=== PATIENT | male | born 1990 | race Caucasian/White ===

== ENCOUNTER 2016-08-01 15:53 | Emergency (ER) | payer OTHER ==
--- NOTE | 2016-08-01 16:13 | ED ORDER SUMMARY ---
..... Patient: MERCEDES BRIDGES OrderSheet [facility] VisitID: [id number] [address] [place] [address] 26y, M Registration Date/Time: 08/01/2016 ORDER SHEET Weight: 68.0 kg (stated) Allergies: No Known Drug Allergy GENERAL ORDERS: MEDICATION ORDERS: Hydrocodone-APAP PO 5/325 mg (NOW, HIGH ALERT MEDICATION) (16:10 08/01/2016 Ernesto P.A.-C) (Ack 16:19 Magda R.N.) (16:28 Magda R.N.) Amoxicillin PO 500 mg (NOW) (16:11 08/01/2016 Ernesto P.A.-C) (Ack 16:19 Magda R.N.) (16:28 Magda R.N.) IV FLUIDS: ORDER SHEET NOTES: [Electronically signed by Tiffanie Hillman P.A.-C (16:19 08/01/2016)] [Electronically signed by Alana Webb R.N. (16:29 08/01/2016)] [Electronically locked/signed by Alana Webb R.N. (16:29 08/01/2016)]
--- NOTE | 2016-08-01 16:13 | ED NURSING NOTES ---
Clinical Report - Nurses [facility] [address] [place] [address] 08/01/2016 15:56 Patient: MERCEDES BRIDGES TRIAGE Triage time 16:02. Acuity: LEVEL 4. Chief Complaint: TOOTHACHE. Alert. LUIS COMA SCORE: [place] Coma Scale: 15- eyes open spontaneously (4); best verbal response- oriented x 4 (5); best motor response- obeys commands (6). --16:05 Alana Webb R.N. 16:02 08/01/16. BP: 161/84. HR: 76. RR: 18. O2 saturation: 100%. Temp: 97.8 F (oral). Pain level now: 12/29. --16:05 Alana Webb R.N. Weight: 68 kg stated. Height/Length: 73 inches Per Patient. BMI: 19.8. --16:05 Alana Webb R.N. Medications Antibiotic, , for foliculitis. --16:03 Alana Webb R.N. Medication/allergy information source: the patient. --16:05 Alana Webb R.N. Allergies No Known Drug Allergy. --16:04 Alana Webb R.N. History Arrived by private vehicle. Historian: patient. Accompanied by family. Primary physician (none). Onset. (about 2 months). SOCIAL HX: Heavy tobacco smoker- less than 1 pack per day. Alcohol use; consumes four beers a day. History of drug use: marijuana. FALL RISK ASSESSMENT: Fall risk assessment completed. No fall risk identified. FUNCTIONAL ASSESSMENT: Functional assessment: no impairments noted. LEARNING NEEDS ASSESSMENT: The learning needs assessment revealed no barriers. --16:05 Alana Webb R.N. PROBLEMS: Abrasion(s). Head Injury. Laceration. Clavicle Fracture. --16:04 Alana Webb R.N. ADDITIONAL SURGERIES: Clavical surg. --16:04 Alana Webb R.N. Assessment GENERAL / NEURO / PSYCH: The patient is awake and alert, is oriented and cooperative and appears uncomfortable. He has good eye contact. RESPIRATORY: Respirations not labored. SKIN: Skin is warm and dry. --16:05 Alana Webb R.N. Interventions ID band on patient. To treatment room. --16:05 Alana Webb R.N. PHYSICAL ASSESSMENT 16:08/01/16. Ambulatory to room. GENERAL / NEURO / PSYCH: The patient is awake and alert, is oriented and cooperative and appears uncomfortable. He has good eye contact. RESPIRATORY: Respirations not labored. SKIN: Skin is warm and dry. --16:07 Aalna Webb R.N. NURSING PROGRESS NOTES 16:08/01/16. Head of bed elevated. Call light placed in reach. Side rails up x 1. Bed placed in lowest position. Brakes of bed on. --16:07 Alana Webb R.N. 16:20 08/01/2016 Hydrocodone-APAP (Hydrocodone-Acetaminophen) PO 5/325 mg Tablets 1 tab given. Allergies verified, confirmed 5 rights and sedative warning given to the patient. --16:28 Alana Webb R.N. 16:20 08/01/2016 Amoxicillin PO Capsules 500 mg given. Allergies verified and confirmed 5 rights. --16:28 Alana Webb R.N. 16:20. Reassessment after medication administered. He is calm. Overall patient status is the same- he states feels the same. GENERAL / NEURO / PSYCH: Alert. Oriented X 4. RESPIRATORY: No respiratory distress. SKIN: Skin is warm and dry. --16:29 Alana Webb R.N. DISPOSITION / DISCHARGE Departure time: 1620. Condition at departure: unchanged. No learning barriers present. Discharge instructions provided and reviewed with the patient. Reviewed medication(s). Prescription(s) given to the patient. Patient verbalized understanding. Written instructions provided in [place]. The patient was discharged home and accompanied by family. He left the Emergency Department ambulatory and via private vehicle. FALL RISK ASSESSMENT: Fall risk assessment completed. No fall risk identified. --16:27 Alana Webb R.N. 16:20 08/01/16. BP: 130/75. HR: 90. RR: 18. O2 saturation: 96%. Pain level now: 12/29. --16:27 Alana Webb R.N. Locked/Released at 08/01/2016 16:29 by Alana Webb R.N.
--- NOTE | 2016-08-01 16:13 | ED CLINICAL REPORT ---
Clinical Report - Physicians/Mid Levels [facility] [address] [place] [place] [address] 08/01/2016 15:56 Patient: MERCEDES BRIDGES Time Seen: 16:07 Aug 01 2016. Arrived- By private vehicle. Historian- patient. HISTORY OF PRESENT ILLNESS Chief Complaint: DENTAL PAIN. This started today similar ongoing for a few months and is still present. No sore throat or nasal discharge. He has had toothache. (Patient reports worsening abdominal pain over the last 24 hours. Reports history of similar pain to the left aspect. He denies any patient's on. He denies any difficulty eating. Advil this morning. Denies any fevers. Denies any new injury.). REVIEW OF SYSTEMS No fever, difficulty breathing or skin rash. All systems otherwise negative, except as recorded above. SOCIAL HISTORY Smoker- current status unknown. Alcohol use. History of IV drug use: marijuana. ADDITIONAL NOTES The nursing notes have been reviewed. PHYSICAL EXAM Vital Signs: 08/01/2016 16:02 BP: 161/84. HR: 76. RR: 18. O2 saturation: 100%. Temp: 97.8 F. Pain level now: 10/10. Appearance: Alert. Head: (tm unremarkable of left side, no mastoid tendernss.). Eyes: Conjunctivae and eyelids normal. ENT: Dental tenderness. Ears normal. Nose normal. Lips normal. Uvula midline. No trismus. (No facial swelling, decay of teeth to erythema of the gumline, with tenderness on the lower aspect of the molar. No palpable mass.). Neck: Trachea midline. No adenopathy. CVS: Normal heart rate and rhythm. Heart sounds normal. Respiratory: No respiratory distress. Breath sounds normal. No stridor. Skin: Normal skin color. No rash. PROGRESS AND PROCEDURES Course of Care: Patient with no signs of Dannie angina. No facial swelling. Decay of the teeth especially his left lower molar. Patient otherwise very stable. Fall palpation. Uvula is midline. Patient is stable. Patient/family counseled. Disposition: Discharged. CLINICAL IMPRESSION Moderate dental pain. INSTRUCTIONS Drink plenty of fluids. Prescription Medications: Hydrocodone/APAP 5mg / 325mg: take 1 orally every 6 hours as needed for pain. Dispense five (5). No refill. Amoxicillin 500 mg tablets: Take 1 orally every 8 hours for 10 days. Dispense thirty (30). No refills. Motrin 800 mg tablets: take 1 tablet orally every 8 hours for 5 days, as needed for pain. Dispense fifteen (15). No refill. Substitution is permissible. Follow-up: Follow up with a specialist. (Electronically signed by Tiffanie Hillman P.A.-C 08/01/2016 16:19)
--- NOTE | 2016-08-01 16:13 | ED CLINICAL REPORT ---
Clinical Report - Physicians/Mid Levels [facility] [address] [place] [place] [address] 08/01/2016 15:56 Patient: MERCEDES BRIDGES Time Seen: 16:07 Aug 01 2016. Arrived- By private vehicle. Historian- patient. HISTORY OF PRESENT ILLNESS Chief Complaint: DENTAL PAIN. This started today similar ongoing for a few months and is still present. No sore throat or nasal discharge. He has had toothache. (Patient reports worsening abdominal pain over the last 24 hours. Reports history of similar pain to the left aspect. He denies any patient's on. He denies any difficulty eating. Advil this morning. Denies any fevers. Denies any new injury.). REVIEW OF SYSTEMS No fever, difficulty breathing or skin rash. All systems otherwise negative, except as recorded above. SOCIAL HISTORY Smoker- current status unknown. Alcohol use. History of IV drug use: marijuana. ADDITIONAL NOTES The nursing notes have been reviewed. PHYSICAL EXAM Vital Signs: 08/01/2016 16:02 BP: 161/84. HR: 76. RR: 18. O2 saturation: 100%. Temp: 97.8 F. Pain level now: 10/10. Appearance: Alert. Head: (tm unremarkable of left side, no mastoid tendernss.). Eyes: Conjunctivae and eyelids normal. ENT: Dental tenderness. Ears normal. Nose normal. Lips normal. Uvula midline. No trismus. (No facial swelling, decay of teeth to erythema of the gumline, with tenderness on the lower aspect of the molar. No palpable mass.). Neck: Trachea midline. No adenopathy. CVS: Normal heart rate and rhythm. Heart sounds normal. Respiratory: No respiratory distress. Breath sounds normal. No stridor. Skin: Normal skin color. No rash. PROGRESS AND PROCEDURES Course of Care: Patient with no signs of Dannie angina. No facial swelling. Decay of the teeth especially his left lower molar. Patient otherwise very stable. Fall palpation. Uvula is midline. Patient is stable. Patient/family counseled. Disposition: Discharged. CLINICAL IMPRESSION Moderate dental pain. INSTRUCTIONS Drink plenty of fluids. Prescription Medications: Hydrocodone/APAP 5mg / 325mg: take 1 orally every 6 hours as needed for pain. Dispense five (5). No refill. Amoxicillin 500 mg tablets: Take 1 orally every 8 hours for 10 days. Dispense thirty (30). No refills. Motrin 800 mg tablets: take 1 tablet orally every 8 hours for 5 days, as needed for pain. Dispense fifteen (15). No refill. Substitution is permissible. Follow-up: Follow up with a specialist. (Electronically signed by Tiffanie Hillman P.A.-C 08/01/2016 16:19)
--- NOTE | 2016-08-01 16:13 | ED NURSING NOTES ---
Clinical Report - Nurses [facility] [address] [place] [address] 08/01/2016 15:56 Patient: MERCEDES BRIDGES TRIAGE Triage time 16:02. Acuity: LEVEL 4. Chief Complaint: TOOTHACHE. Alert. LUIS COMA SCORE: [place] Coma Scale: 15- eyes open spontaneously (4); best verbal response- oriented x 4 (5); best motor response- obeys commands (6). --16:05 Alana Webb R.N. 16:02 08/01/16. BP: 161/84. HR: 76. RR: 18. O2 saturation: 100%. Temp: 97.8 F (oral). Pain level now: 12/29. --16:05 Alana Webb R.N. Weight: 68 kg stated. Height/Length: 73 inches Per Patient. BMI: 19.8. --16:05 Alana Webb R.N. Medications Antibiotic, , for foliculitis. --16:03 Alana Webb R.N. Medication/allergy information source: the patient. --16:05 Alana Webb R.N. Allergies No Known Drug Allergy. --16:04 Alana Webb R.N. History Arrived by private vehicle. Historian: patient. Accompanied by family. Primary physician (none). Onset. (about 2 months). SOCIAL HX: Heavy tobacco smoker- less than 1 pack per day. Alcohol use; consumes four beers a day. History of drug use: marijuana. FALL RISK ASSESSMENT: Fall risk assessment completed. No fall risk identified. FUNCTIONAL ASSESSMENT: Functional assessment: no impairments noted. LEARNING NEEDS ASSESSMENT: The learning needs assessment revealed no barriers. --16:05 Alana Webb R.N. PROBLEMS: Abrasion(s). Head Injury. Laceration. Clavicle Fracture. --16:04 Alana Webb R.N. ADDITIONAL SURGERIES: Clavical surg. --16:04 Alana Webb R.N. Assessment GENERAL / NEURO / PSYCH: The patient is awake and alert, is oriented and cooperative and appears uncomfortable. He has good eye contact. RESPIRATORY: Respirations not labored. SKIN: Skin is warm and dry. --16:05 Alana Webb R.N. Interventions ID band on patient. To treatment room. --16:05 Alana Webb R.N. PHYSICAL ASSESSMENT 16:08/01/16. Ambulatory to room. GENERAL / NEURO / PSYCH: The patient is awake and alert, is oriented and cooperative and appears uncomfortable. He has good eye contact. RESPIRATORY: Respirations not labored. SKIN: Skin is warm and dry. --16:07 Alana Webb R.N. NURSING PROGRESS NOTES 16:08/01/16. Head of bed elevated. Call light placed in reach. Side rails up x 1. Bed placed in lowest position. Brakes of bed on. --16:07 Alana Webb R.N. 16:20 08/01/2016 Hydrocodone-APAP (Hydrocodone-Acetaminophen) PO 5/325 mg Tablets 1 tab given. Allergies verified, confirmed 5 rights and sedative warning given to the patient. --16:28 Alana Webb R.N. 16:20 08/01/2016 Amoxicillin PO Capsules 500 mg given. Allergies verified and confirmed 5 rights. --16:28 Alana Webb R.N. 16:20. Reassessment after medication administered. He is calm. Overall patient status is the same- he states feels the same. GENERAL / NEURO / PSYCH: Alert. Oriented X 4. RESPIRATORY: No respiratory distress. SKIN: Skin is warm and dry. --16:29 Alana Webb R.N. DISPOSITION / DISCHARGE Departure time: 1620. Condition at departure: unchanged. No learning barriers present. Discharge instructions provided and reviewed with the patient. Reviewed medication(s). Prescription(s) given to the patient. Patient verbalized understanding. Written instructions provided in [place]. The patient was discharged home and accompanied by family. He left the Emergency Department ambulatory and via private vehicle. FALL RISK ASSESSMENT: Fall risk assessment completed. No fall risk identified. --16:27 Alana Webb R.N. 16:20 08/01/16. BP: 130/75. HR: 90. RR: 18. O2 saturation: 96%. Pain level now: 12/29. --16:27 Alana Webb R.N. Locked/Released at 08/01/2016 16:29 by Alana Webb R.N.
--- NOTE | 2016-08-01 16:13 | ED ORDER SUMMARY ---
..... Patient: MERCEDES BRIDGES OrderSheet [facility] VisitID: [id number] [address] [place] [address] 26y, M Registration Date/Time: 08/01/2016 ORDER SHEET Weight: 68.0 kg (stated) Allergies: No Known Drug Allergy GENERAL ORDERS: MEDICATION ORDERS: Hydrocodone-APAP PO 5/325 mg (NOW, HIGH ALERT MEDICATION) (16:10 08/01/2016 Ernesto P.A.-C) (Ack 16:19 Magda R.N.) (16:28 Magda R.N.) Amoxicillin PO 500 mg (NOW) (16:11 08/01/2016 Ernesto P.A.-C) (Ack 16:19 Magda R.N.) (16:28 Magda R.N.) IV FLUIDS: ORDER SHEET NOTES: [Electronically signed by Tiffanie Hillman P.A.-C (16:19 08/01/2016)] [Electronically signed by Alana Webb R.N. (16:29 08/01/2016)] [Electronically locked/signed by Alana Webb R.N. (16:29 08/01/2016)]
--- NOTE | 2016-08-01 16:29 | ED DISCHARGE INSTRUCTIONS ---
Patient: MERCEDES BRIDGES General Instructions [facility] VisitID: [id number] [place] [address] 26y, M Registration Date/Time: 08/01/2016 Moderate dental pain. INSTRUCTIONS Drink plenty of fluids. Prescription Medications: Hydrocodone/APAP 5mg / 325mg: take 1 orally every 6 hours as needed for pain. Dispense five (5). No refill. Amoxicillin 500 mg tablets: Take 1 orally every 8 hours for 10 days. Dispense thirty (30). No refills. Motrin 800 mg tablets: take 1 tablet orally every 8 hours for 5 days, as needed for pain. Dispense fifteen (15). No refill. Substitution is permissible. Follow-up: Follow up with a specialist. ADDITIONAL INFORMATION Dental Pain A crack or cavity in the tooth, which exposes the sensitive inner area of the tooth can cause tooth pain. An infection in the gum or the root of the tooth can cause pain and swelling. The pain is often made worse by drinking hot or cold fluids, or biting on hard foods. Pain may spread from the tooth to the ear or jaw on the same side. Home Care: Avoid hot and cold foods and liquids since your tooth may be sensitive to temperature changes. If your tooth is chipped or cracked, or if there is a large open cavity, apply OIL OF CLOVES (available zuck-rxn-oevhpvi in drug stores) directly to the tooth to reduce pain. Some pharmacies carry an ivnr-mri-lftumvo "toothache kit." This contains a paste, which can be applied over the exposed tooth to decrease sensitivity. A cold pack on your jaw over the sore area may help reduce pain. You may use acetaminophen (Tylenol) or ibuprofen (Motrin, Advil) to control pain, unless another medicine was prescribed. [ NOTE: If you have chronic liver or kidney disease or ever had a stomach ulcer or GI bleeding, talk with your doctor before using these medicines.] If you have signs of an infection, an antibiotic will be given. Take it as directed. Follow-Up as directed with a dentist. Your pain may go away with the treatment given. However, only a dentist can fully evaluate and treat the cause and prevent the pain from coming back again. TOOTHACHE IS A SIGN OF DISEASE IN YOUR TOOTH AND SHOULD BE EXAMINED AND TREATED BY A DENTIST. Get Prompt Medical Attention if any of the following occur: Your face becomes swollen or red Pain worsens or spreads to the neck Fever over 100.4 F (38.0 C) Unusual drowsiness; headache or stiff neck; weakness or fainting Pus drains from the tooth Difficulty swallowing or breathing Hydrocodone Bitartrate, Acetaminophen Oral tablet What is this medicine? ACETAMINOPHEN; HYDROCODONE (a set a RAFAL rochelle fen; meenu droe KOE done) is a pain reliever. It is used to treat mild to moderate pain. How should I use this medicine? Take this medicine by mouth. Swallow it with a full glass of water. Follow the directions on the prescription label. If the medicine upsets your stomach, take the medicine with food or milk. Do not take more than you are told to take. Talk to your shoe planner regarding the use of this medicine in children. This medicine is not approved for use in children. What side effects may I notice from receiving this medicine? Side effects that you should report to your doctor or health customer care specialist as soon as possible: allergic reactions like skin rash, itching or hives, swelling of the face, lips, or tongue breathing problems confusion feeling faint or lightheaded, falls stomach pain yellowing of the eyes or skin Side effects that usually do not require medical attention (report to your doctor or health customer care specialist if they continue or are bothersome): nausea, vomiting stomach upset What may interact with this medicine? alcohol antihistamines isoniazid medicines for depression, anxiety, or psychotic disturbances medicines for sleep muscle relaxants naltrexone narcotic medicines (opiates) for pain phenobarbital ritonavir tramadol What if I miss a dose? If you miss a dose, take it as soon as you can. If it is almost time for your next dose, take only that dose. Do not take double or extra doses. Where should I keep my medicine? Keep out of the reach of children. This medicine can be abused. Keep your medicine in a safe place to protect it from theft. Do not share this medicine with anyone. Selling or giving away this medicine is dangerous and against the law. Store at room temperature between 15 and 30 degrees C (59 and 86 degrees F). Protect from light. Keep container tightly closed. Throw away any unused medicine after the expiration date. Discard unused medicine and used packaging carefully. Pets and children can be harmed if they find used or lost packages. What should I tell my health care provider before I take this medicine? They need to know if you have any of these conditions: brain tumor Crohn's disease, inflammatory bowel disease, or ulcerative colitis drink more than 3 alcohol-containing drinks per day drug abuse or addiction head injury heart or circulation problems kidney disease or problems going to the bathroom liver disease lung disease, asthma, or breathing problems an unusual or allergic reaction to acetaminophen, hydrocodone, other opioid analgesics, other medicines, foods, dyes, or preservatives or trying to get breast-feeding What should I watch for while using this medicine? Tell your doctor or health customer care specialist if your pain does not go away, if it gets worse, or if you have new or a different type of pain. You may develop tolerance to the medicine. Tolerance means that you will need a higher dose of the medicine for pain relief. Tolerance is normal and is expected if you take the medicine for a long time. Do not suddenly stop taking your medicine because you may develop a severe reaction. Your body becomes used to the medicine. This does NOT mean you are addicted. Addiction is a behavior related to getting and using a drug for a non-medical reason. If you have pain, you have a medical reason to take pain medicine. Your doctor will tell you how much medicine to take. If your doctor wants you to stop the medicine, the dose will be slowly lowered over time to avoid any side effects. You may get drowsy or dizzy when you first start taking the medicine or change doses. Do not drive, use machinery, or do anything that may be dangerous until you know how the medicine affects you. Stand or sit up slowly. There are different types of narcotic medicines (opiates) for pain. If you take more than one type at the same time, you may have more side effects. Give your health care provider a list of all medicines you use. Your doctor will tell you how much medicine to take. Do not take more medicine than directed. Call emergency for help if you have problems breathing. The medicine will cause constipation. Try to have a bowel movement at least every 2 to 3 days. If you do not have a bowel movement for 3 days, call your doctor or health customer care specialist. Too much acetaminophen can be very dangerous. Do not take Tylenol (acetaminophen) or medicines that contain acetaminophen with this medicine. Many non-prescription medicines contain acetaminophen. Always read the labels carefully. You have been given the following additional information: Dental Pain Hydrocodone Bitartrate, Acetaminophen Oral tablet (Electronically signed by Tiffanie Hillman P.A.-C 08/01/2016 16:19)
--- NOTE | 2016-08-01 16:29 | ED DISCHARGE INSTRUCTIONS ---
Patient: MERCEDES BRIDGES General Instructions [facility] VisitID: [id number] [place] [address] 26y, M Registration Date/Time: 08/01/2016 Moderate dental pain. INSTRUCTIONS Drink plenty of fluids. Prescription Medications: Hydrocodone/APAP 5mg / 325mg: take 1 orally every 6 hours as needed for pain. Dispense five (5). No refill. Amoxicillin 500 mg tablets: Take 1 orally every 8 hours for 10 days. Dispense thirty (30). No refills. Motrin 800 mg tablets: take 1 tablet orally every 8 hours for 5 days, as needed for pain. Dispense fifteen (15). No refill. Substitution is permissible. Follow-up: Follow up with a specialist. ADDITIONAL INFORMATION Dental Pain A crack or cavity in the tooth, which exposes the sensitive inner area of the tooth can cause tooth pain. An infection in the gum or the root of the tooth can cause pain and swelling. The pain is often made worse by drinking hot or cold fluids, or biting on hard foods. Pain may spread from the tooth to the ear or jaw on the same side. Home Care: Avoid hot and cold foods and liquids since your tooth may be sensitive to temperature changes. If your tooth is chipped or cracked, or if there is a large open cavity, apply OIL OF CLOVES (available [id number]-[id number] in drug stores) directly to the tooth to reduce pain. Some pharmacies carry an [id number] "toothache kit." This contains a paste, which can be applied over the exposed tooth to decrease sensitivity. A cold pack on your jaw over the sore area may help reduce pain. You may use acetaminophen (Tylenol) or ibuprofen (Motrin, Advil) to control pain, unless another medicine was prescribed. [ NOTE: If you have chronic liver or kidney disease or ever had a stomach ulcer or GI bleeding, talk with your doctor before using these medicines.] If you have signs of an infection, an antibiotic will be given. Take it as directed. Follow-Up as directed with a dentist. Your pain may go away with the treatment given. However, only a dentist can fully evaluate and treat the cause and prevent the pain from coming back again. TOOTHACHE IS A SIGN OF DISEASE IN YOUR TOOTH AND SHOULD BE EXAMINED AND TREATED BY A DENTIST. Get Prompt Medical Attention if any of the following occur: Your face becomes swollen or red Pain worsens or spreads to the neck Fever over 100.4 F (38.0 C) Unusual drowsiness; headache or stiff neck; weakness or fainting Pus drains from the tooth Difficulty swallowing or breathing Hydrocodone Bitartrate, Acetaminophen Oral tablet What is this medicine? ACETAMINOPHEN; HYDROCODONE (a set a RAFAL rochelle fen; meenu droe KOE done) is a pain reliever. It is used to treat mild to moderate pain. How should I use this medicine? Take this medicine by mouth. Swallow it with a full glass of water. Follow the directions on the prescription label. If the medicine upsets your stomach, take the medicine with food or milk. Do not take more than you are told to take. Talk to your coatings inspector regarding the use of this medicine in children. This medicine is not approved for use in children. What side effects may I notice from receiving this medicine? Side effects that you should report to your doctor or health janitor caretaker as soon as possible: allergic reactions like skin rash, itching or hives, swelling of the face, lips, or tongue breathing problems confusion feeling faint or lightheaded, falls stomach pain yellowing of the eyes or skin Side effects that usually do not require medical attention (report to your doctor or health janitor caretaker if they continue or are bothersome): nausea, vomiting stomach upset What may interact with this medicine? alcohol antihistamines isoniazid medicines for depression, anxiety, or psychotic disturbances medicines for sleep muscle relaxants naltrexone narcotic medicines (opiates) for pain phenobarbital ritonavir tramadol What if I miss a dose? If you miss a dose, take it as soon as you can. If it is almost time for your next dose, take only that dose. Do not take double or extra doses. Where should I keep my medicine? Keep out of the reach of children. This medicine can be abused. Keep your medicine in a safe place to protect it from theft. Do not share this medicine with anyone. Selling or giving away this medicine is dangerous and against the law. Store at room temperature between 15 and 30 degrees C (59 and 86 degrees F). Protect from light. Keep container tightly closed. Throw away any unused medicine after the expiration date. Discard unused medicine and used packaging carefully. Pets and children can be harmed if they find used or lost packages. What should I tell my health care provider before I take this medicine? They need to know if you have any of these conditions: brain tumor Crohn's disease, inflammatory bowel disease, or ulcerative colitis drink more than 3 alcohol-containing drinks per day drug abuse or addiction head injury heart or circulation problems kidney disease or problems going to the bathroom liver disease lung disease, asthma, or breathing problems an unusual or allergic reaction to acetaminophen, hydrocodone, other opioid analgesics, other medicines, foods, dyes, or preservatives or trying to get breast-feeding What should I watch for while using this medicine? Tell your doctor or health janitor caretaker if your pain does not go away, if it gets worse, or if you have new or a different type of pain. You may develop tolerance to the medicine. Tolerance means that you will need a higher dose of the medicine for pain relief. Tolerance is normal and is expected if you take the medicine for a long time. Do not suddenly stop taking your medicine because you may develop a severe reaction. Your body becomes used to the medicine. This does NOT mean you are addicted. Addiction is a behavior related to getting and using a drug for a non-medical reason. If you have pain, you have a medical reason to take pain medicine. Your doctor will tell you how much medicine to take. If your doctor wants you to stop the medicine, the dose will be slowly lowered over time to avoid any side effects. You may get drowsy or dizzy when you first start taking the medicine or change doses. Do not drive, use machinery, or do anything that may be dangerous until you know how the medicine affects you. Stand or sit up slowly. There are different types of narcotic medicines (opiates) for pain. If you take more than one type at the same time, you may have more side effects. Give your health care provider a list of all medicines you use. Your doctor will tell you how much medicine to take. Do not take more medicine than directed. Call emergency for help if you have problems breathing. The medicine will cause constipation. Try to have a bowel movement at least every 2 to 3 days. If you do not have a bowel movement for 3 days, call your doctor or health janitor caretaker. Too much acetaminophen can be very dangerous. Do not take Tylenol (acetaminophen) or medicines that contain acetaminophen with this medicine. Many non-prescription medicines contain acetaminophen. Always read the labels carefully. You have been given the following additional information: Dental Pain Hydrocodone Bitartrate, Acetaminophen Oral tablet (Electronically signed by Tiffanie Hillman P.A.-C 08/01/2016 16:19)
--- NOTE | 2016-08-01 16:30 | ED MED RECONCILIATION SUMMARY ---
Patient: MERCEDES BRIDGES Medication Reconciliation Report [facility] VisitID: [id number] [place] [address] 26y, M Registration Date/Time: 08/01/2016 Weight: 68.0 kg Height/Length: 73 in. BMI: 19.8 ALLERGIES: No Known Drug Allergy The patient's Home Medications are listed below: THE FOLLOWING MEDICATIONS NEED TO BE RECONCILED: Antibiotic, for foliculitis The source(s) of the original Home Medication information: patient The following Medications were given to the patient in the Emergency Department: Hydrocodone-APAP [PO] PO 1 tab, administered: 08/01/2016 4:20:00 PM Amoxicillin [PO] PO 500 mg, administered: 08/01/2016 4:20:00 PM The following Medications were prescribed to the patient: Hydrocodone/APAP 5mg / 325mg: take 1 orally every 6 hours as needed for pain. Dispense five (5). No refill. -- Tiffanie Hillman, P.A.-Daniel Amoxicillin 500 mg tablets: Take 1 orally every 8 hours for 10 days. Dispense thirty (30). No refills. -- Tiffanie Hillman, P.A.-Daniel Motrin 800 mg tablets: take 1 tablet orally every 8 hours for 5 days, as needed for pain. Dispense fifteen (15). No refill. Substitution is permissible. -- Tiffanie Hillman P.A.-C
--- NOTE | 2016-08-01 16:30 | ED MED RECONCILIATION SUMMARY ---
Patient: MERCEDES BRIDGES Medication Reconciliation Report [facility] VisitID: [id number] [place] [address] 26y, M Registration Date/Time: 08/01/2016 Weight: 68.0 kg Height/Length: 73 in. BMI: 19.8 ALLERGIES: No Known Drug Allergy The patient's Home Medications are listed below: THE FOLLOWING MEDICATIONS NEED TO BE RECONCILED: Antibiotic, for foliculitis The source(s) of the original Home Medication information: patient The following Medications were given to the patient in the Emergency Department: Hydrocodone-APAP [PO] PO 1 tab, administered: 08/01/2016 4:20:00 PM Amoxicillin [PO] PO 500 mg, administered: 08/01/2016 4:20:00 PM The following Medications were prescribed to the patient: Hydrocodone/APAP 5mg / 325mg: take 1 orally every 6 hours as needed for pain. Dispense five (5). No refill. -- Tiffanie Hillman, P.A.-Daniel Amoxicillin 500 mg tablets: Take 1 orally every 8 hours for 10 days. Dispense thirty (30). No refills. -- Tiffanie Hillman, P.A.-Daniel Motrin 800 mg tablets: take 1 tablet orally every 8 hours for 5 days, as needed for pain. Dispense fifteen (15). No refill. Substitution is permissible. -- Tiffanie Hillman P.A.-C
--- NOTE | 2016-08-01 16:30 | ED MAR SUMMARY ---
..... Medication Administration Record [facility] [address] [place] [address] Patient: MERCEDES BRIDGES Visit ID: [id number] 26y, M Weight: 68.0 kg Height/Length: 73 in BMI: 19.8 ALLERGIES: No Known Drug Allergy Given 16:08/01/2016 Alana Webb RDaniela Medication Administered: HYDROCODONE-APAP [PO] (HYDROCODONE-ACETAMINOPHEN), Dose: 1 tab 5/325 mg Tablets PO. Medication Ordered: Hydrocodone-APAP PO 5/325 mg (NOW, HIGH ALERT MEDICATION). Given 16:08/01/2016 Alana Webb, RHeshamN. Medication Administered: AMOXICILLIN [PO], Dose: 500 mg Capsules PO. Medication Ordered: Amoxicillin PO 500 mg (NOW).
--- NOTE | 2016-08-01 16:30 | ED MAR SUMMARY ---
..... Medication Administration Record [facility] [address] [place] [address] Patient: MERCEDES BRIDGES Visit ID: [id number] 26y, M Weight: 68.0 kg Height/Length: 73 in BMI: 19.8 ALLERGIES: No Known Drug Allergy Given 16:08/01/2016 Alana Webb RDaniela Medication Administered: HYDROCODONE-APAP [PO] (HYDROCODONE-ACETAMINOPHEN), Dose: 1 tab 5/325 mg Tablets PO. Medication Ordered: Hydrocodone-APAP PO 5/325 mg (NOW, HIGH ALERT MEDICATION). Given 16:08/01/2016 Alana Webb, RHeshamN. Medication Administered: AMOXICILLIN [PO], Dose: 500 mg Capsules PO. Medication Ordered: Amoxicillin PO 500 mg (NOW).
== END 2016-08-01 16:30 | disposition home or self-care (01) ==
LOC: ED SRH 15:53
DX: K08.89 Other specified disorders of teeth and supporting structures (principal)